=== PATIENT | male | born 2000 | race Caucasian/White ===

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

== ENCOUNTER 2020-08-15 21:08 | Emergency (ER) | payer SELFPAY ==
--- NOTE | 2020-08-15 21:15 | DI.RAD_ITS ---
Exam(s) XR SHOULDER LT COMPLETE 2+V EXAM: XR SHOULDER LT COMPLETE 2+V CLINICAL HISTORY: pain s/p fall. TECHNIQUE: 2D digital imaging was performed. COMPARISON: No exams were available for comparison FINDINGS: There is a large well-defined slightly lobulated osteophytic fragment measuring 4.4 by 1.5 cm along t he medial aspect of the neck and proximal diaphysis of the humerus, having the appearance of a nonacu te avulsion fracture but cannot exclude other pathology. Clinical correlation with patient's prior h istory and imaging is recommended. If this is not previously known finding then further evaluation w ith MRI is recommended rule out underlying pathologic bone lesion. No dislocation glenohumeral joint subacromial space appears unremarkable with no calcifications there in. AC joint unremarkable. Clavicle unremarkable. IMPRESSION: Large ossified density as described above. If this is not a previously documented finding than evalu ation with MRI is recommended to rule out underlying pathologic lesion. DATA REPOSITORY: RADIATION DOSE DELIVERED:
--- NOTE | 2020-08-15 21:16 | ED.GENADUL_ITS ---
Discharge Plan Disposition Patient Disposition: HOME Condition: Stable Discharge Details Chief Complaint: Orthopedic Clinical Impression: Sprain of left shoulder Primary Care Provider: Andres Cordova ED Provider: Venu Olsen Discharge Instructions Instructions: Shoulder Sprain (ED) Stand Alone Forms: Work Release Medical Decision Making 19 yo male who denies chronic medical problems comes in with cc of left shoulder pain. He was playing softball and went to slide into home base and to avoid a tag he had to roll onto his left shoulder which caused pain. Denies loc or other injuries. No head pain, neck pain, chest pain, abdomen pain. He only has pain in the left anterior shoulder. He has no noticeable deformity or assymetry to the other shoulder. No erythema or warmth. No pain in the humerus, elbow, forearm, wrist or hand with full range of motion of the elbow hand and shoulder, normal sensation and pulses. He is able to abduct his shoulder to about 90 degrees then limited due to pain but I am able to passively fully range the arm. Suspect strain vs sprain, less likely rotator cuff injury, will xray to evaluate for fracture or dislocation which I feel is unlikely based on exam xray shows what radiology wrote as possible left humeral metaphysis old avulsive injury and if not known previous finding and can consider non emergent MRI. I did discuss CT to further evaluate now and he would like to proceed with this at this time. ct shows old injury no acute findings and he does remember when he was younger injuring the shoulder. Will place in sling and discharge home, advised to follow up with pcp if pain continues in a week Differential Diagnosis Differential Diagnosis: sprain, strain, fracture Imaging Data Radiologic Study: Attestation: I personally reviewed and interpreted this imaging study as follows: Imaging: X-Ray Radiologist's impression: 1. Large, slightly lobulated well corticated curvilinear 4.4 cm ossific fragment along the medial margin of the proximal left humeral metaphysis with apparent sclerotic appearing donor site along the medial aspect of the proximal left humeral metaphysis concerning for sequela of old avulsive injury, however clinical correlation with history and prior imaging is recommended. If this is not a previously known finding, further evaluation with nonemergent contrast enhanced MRI is recommended to exclude underlying patholo gic lesion. 2. Otherwise no acute fracture or dislocation. Radiologic Study #2: Attestation: I personally reviewed and interpreted this imaging study as follows: Imaging: CT Scan Radiologist's impression: IMPRESSION: 1. Mildly irregular, mildly lobu lated 3.6 cm well-corticated ossific fragment along the medial margin of the proximal humeral metaphysis with apparent adjacent well corticated donor site from the medial aspect of the proximal humeral metaphysis. This is suspected to represent sequela of old osseous avulsive injury, possibly related to the subscapularis insertion, recommend clinical correlation. 2. Otherwise no acute fracture or dislocation. No convincing evidence of posterior dislocation event. HPI General Mode of arrival: ambulatory . Date/Time Provider Initiated Documentation: 08/15/20 21:16 . Limitations to Documentation: no limitations . Information obtained by: patient . History of Present Illness 19 year old M presents to the emergency department with the chief complaint of left shoulder pain, described as moderate, Quality is described as aching, and is localized to the left and upper extremity. Patient reports no radiation. Rest improves symptom(s), Movement worsens symptoms . Patient notes no other symptoms.. Patient did receive the following treatments prior to arrival, none Related Data Allergies Allergy/AdvReac Type Severity Reaction Status Date / Time No Known Allergies Allergy Unverified 08/15/20 21:20 General OSMEL: 4 Review of Systems All systems reviewed & are unremarkable except as noted in HPI and below Constitutional Constitutional: Denies chills, Denies fever(s) and Denies weakness ENT Ears, Nose, Mouth, and Throat: Denies change in voice Cardiovascular Cardiovascular: Denies chest pain and Denies dyspnea Respiratory Respiratory: Denies cough and Denies dyspnea Gastrointestinal Gastrointestinal: Denies abdominal pain, Denies nausea and Denies vomiting Musculoskeletal Musculoskeletal: Denies joint swelling Neurologic Neurologic: Denies weakness [facility] Medical History (Updated 08/15/20 @ 22:46 by Venu Olsen MD) Learning difficulty Nocturnal enuresis Pes planus Family History Mother Healthy adult on routine physical examination Father Healthy adult on routine physical examination Social History Smoking/Tobacco Use Status: Current every day Tobacco Type: cigarettes Smoking risk assessment performed?: Yes Alcohol Intake: never Drug use: Never Substance use type: does not use Do you feel safe at home: Yes Do you feel safe in your relationship?: Yes Exam Const General: no acute distress Orientation: alert [facility] Head: normal to inspection Ears: external ears normal General nose exam: external nose normal Mouth: moist mucous membranes Eyes General: appearance normal, both eyes and all related structures Neck Neck: normal visual inspection Resp Effort & Inspection: normal respiratory effort and able to speak in complete sentences Cardio Rate: regular rate Skin General skin exam: no rashes or lesions noted Neuro General: patient alert and patient oriented x3 Extrem General: normal to inspection and capillary refill normal Psych Mental Status: mental status grossly normal
[2020-08-15 21:17] VITALS: BP 134/67; PULSE 81; RESP 18; TEMP 36.6; O2SAT 99
[2020-08-15] MEDS: Ibuprofen 600 MG TAB PO (21:26)
--- NOTE | 2020-08-15 22:00 | DI.CT_ITS ---
Exam(s) CT UPPER EXTREMITY LT WO EXAM: CT UPPER EXTREMITY LT WO CLINICAL HISTORY: ?posterior shoulder dislocation TECHNIQUE: Imaging Protocol: Axial computed tomography images with coronal and sagittal reformatted images were created and reviewed. CONTRAST MATERIAL: None COMPARISON: Plain films same day reviewed FINDINGS: There is a 3.6 cm by 1.4 cm relatively well-defined osteophytic density semi lunar shaped slightly lo bulated off of the medial aspect of the humeral head neck neck region with a corresponding a defect i n the adjacent bone. Location and configuration most probably reflects prior significant injury of t he inferior glenohumeral [id number] injury. There is no bony Bankart lesion.. Coracoid proc ess is intact. AC joint and acromion are intact. No os acromiale. No abnormal soft tissue calcific ations. There does not appear to be a destructive lesion here. IMPRESSION: Findings as above. Probably related to prior significant trauma related to the inferior glenohumeral ligament/ HAGL-type injury. Correlation with past history recommended. RADIATION DOSE DELIVERED: 373.49mGy.cm Total DLP DATA REPOSITORY: All CT scans at this facility are submitted to the National Radiology Data Registry (NRDR) Dose Index Registry (DIR) with the [employer] (A[employer]). RADIATION OPTIMIZATION: All CT scans at this facility use at least one of these dose optimization te chniques: automated exposure control; mA and/or kV adjustment per patient size (includes targeted exa ms where dose is matched to clinical indication); or iterative reconstruction.
--- NOTE | 2020-08-15 22:21 | DI.VRAD_ITS ---
PROCEDURE INFORMATION: Exam: XR Left Shoulder Exam date and time: 08/15/2020 9:17 PM Age: 19 years old Clinical indication: Injury or trauma; Other: Pain, S/P fall; Crushing; Shoulder; Left; Injury details: Pain S/P fall TECHNIQUE: Imaging protocol: XR Left shoulder. Views: 2 or more views. COMPARISON: CR LEFT ELBOW COMPLETE 09/05/2013 12:25 PM FINDINGS: Bones/joints: There is large, slightly lobulated well corticated curvilinear ossific fragment measuring up to 4.4 cm in length along the medial aspect of the proximal left humeral metaphysis with apparent, sclerotic appearing donor site from the medial aspect of the proximal left humeral metaphysis which appears chronic. Otherwise no acute fracture or dislocation. Acromioclavicular and coracoclavicular intervals are preserved. Soft tissues: No focal abnormality. IMPRESSION: 1. Large, slightly lobulated well corticated curvilinear 4.4 cm ossific fragment along the medial margin of the proximal left humeral metaphysis with apparent sclerotic appearing donor site along the medial aspect of the proximal left humeral metaphysis concerning for sequela of old avulsive injury, however clinical correlation with history and prior imaging is recommended. If this is not a previously known finding, further evaluation with nonemergent contrast enhanced MRI is recommended to exclude underlying pathologic lesion. 2. Otherwise no acute fracture or dislocation. Dictated and Authenticated by: Carlos Manuel Boateng MD. Ordering:ELIEZER Lea MD
--- NOTE | 2020-08-15 22:42 | DI.VRAD_ITS ---
PROCEDURE INFORMATION: Exam: CT Left Upper Extremity Without Contrast, Shoulder Exam date and time: 08/15/2020 10:12 PM Age: 19 years old Clinical indication: Injury or trauma; Crushing; Arm, upper; Left; Injury details: Fall ? posterior shoulder dislocation TECHNIQUE: Imaging protocol: CT of the Left upper extremity without contrast was performed. Exam focused on the shoulder. COMPARISON: CR XR SHOULDER LT COMPLETE 2+V 08/15/2020 9:42 PM FINDINGS: Bones/joints: There is mildly irregular, mildly lobulated ossific fragment along the medial margin of the proximal humeral metaphysis which measures approximately 3.6 cm in length on this exam. This fragment is well corticated with apparent adjacent well corticated donor site from the medial aspect of the proximal humeral metaphysis possibly corresponding to the subscapularis insertion. Otherwise no acute fracture or dislocation. No convincing evidence of posterior dislocation, no reverse Hill-Sachs or reverse osseous Bankart lesion. No significant joint effusion. Acromioclavicular and coracoclavicular intervals are preserved. Soft tissues: No significant focal soft tissue edema. No soft tissue fluid collection.. IMPRESSION: 1. Mildly irregular, mildly lobulated 3.6 cm well-corticated ossific fragment along the medial margin of the proximal humeral metaphysis with apparent adjacent well corticated donor site from the medial aspect of the proximal humeral metaphysis. This is suspected to represent sequela of old osseous avulsive injury, possibly related to the subscapularis insertion, recommend clinical correlation. 2. Otherwise no acute fracture or dislocation. No convincing evidence of posterior dislocation event. Dictated and Authenticated by: Carlos Manuel Boateng MD. Ordering:ELIEZER Lea MD
== END 2020-08-15 22:55 | disposition home or self-care (01) ==
LOC: ER 08-16 02:57
PROVIDERS: Emergency Provider Emergency Medicine; PCP Pediatrics
DX: S43.492A Other sprain of left shoulder joint, initial encounter (principal); W21.89XA Striking against or struck by other sports equipment, initial encounter; Y93.64 Activity, baseball
CPT/HCPCS: 99284; 73030; 73200

== ENCOUNTER 2022-02-27 08:42 | Emergency (ER) | payer SELFPAY ==
--- NOTE | 2022-02-27 08:45 | RT.EKG_ITS ---
APPROVED REPORT Exam: Resting ECG Reason for Exam: CHEST PAIN Patient Location: E HR:89 bpm ECG Measurements Heart Rate 89 AXIS NV 137 P 74 QRSd 78 QRS 70 QT 325 T 49 QTc 395 Conclusion Sinus rhythm...normal P axis, V-rate 60- 99 Probable left atrial enlargement...P >50mS, <-0.10mV V1 PHysician: no stemi
[2022-02-27 08:51] VITALS: BP 131/68; PULSE 89; RESP 23; TEMP 37.6; O2SAT 98
[2022-02-27 08:53] VITALS: RESP 16
[2022-02-27] MEDS: Normal Saline 1,000 ML 1000 ML IV (09:00)
[2022-02-27] MEDS: Ondansetron 4 MG/2 ML VIAL IVP (09:07)
[2022-02-27] MEDS: Acetaminophen 500 MG TAB 1000 MG PO (09:07)
[2022-02-27] MEDS: Ketorolac 15 MG/ML VIAL IVP (09:08)
--- NOTE | 2022-02-27 09:14 | W.ED.GENAD ---
Discharge Plan Disposition Patient Disposition: Home Condition: Good Discharge Details Clinical Impression: Influenza A Primary Care Provider: Jillian Fernandez ED Provider: Les Altamirano Home Meds and New Rx's Prescriptions: No Action No Known Home Meds Discharge Instructions Instructions: Influenza (ED) Additional Instructions: At this time you have influenza. Please stay well-hydrated, get plenty of rest, and take Tylenol Motrin as needed. Your symptoms will likely improve over the next few days. If you notice any worsening of your symptoms, or any new symptoms such as vomiting, diarrhea, fever, chills, shortness of breath, chest pain, numbness, weakness, or fainting , please return immediately to the emergency department for reevaluation. Please follow up with your primary care provider as soon as possible for reassessment and reevaluation. As always, it was a pleasure participating in your medical care today. Stand Alone Forms: Work Release Referrals: Jillian Fernandez MD [Primary Care Provider] - Medical Decision Making 21-year-old male with no significant past medical history who presents today for evaluation of runny nose, congestion, sore throat, nausea, vomiting, diarrhea, chills, fatigue, achiness. Patient states that the symptoms been present for the last for 5 days. He developed burning in the epigastrium and vomiting and diarrhea over the last 2 to 3 days. He denies any hemoptysis, hematochezia or melena. He denies any hematemesis. He has not received his flu or COVID-vaccine. He has not had COVID. He denies any other complaints at this time. No other modifying factors. Physical exam demonstrates well-appearing male, no signs of significant abnormality. No meningeal signs, lungs are clear, vital signs stable aside from mild tachycardia. Mucous membranes notably dry. Suspect viral etiology like COVID or flu. Will evaluate for these. We will rehydrate, monitor closely and reassess. EKG shows no evidence of STEMI. Bedside echo shows no abnormalities. 10:14 AM Laboratory work-up is returned normal, patient has been rehydrated, vital stable, influenza A is positive. Chest x-ray shows no evidence of pneumonia, patient stable for discharge home. Patient has been rehydrated with a liter of normal saline. He is tolerating p.o. well. Recommend continued fluids at home, Tylenol, Motrin, rest. Will give Zofran for home use. Recommend bland diet. Discussed red flags for which to return. Discussed risks and benefits of antivirals at this time, and through shared decision-making process patient has elected to hold off on antivirals. I have extensively reviewed the treatment plan and discharge instructions with the patient. I have addressed all patient concerns at this time. The patient was made aware of what symptoms to monitor for that would warrant a return to the emergency department. Discussed the plan with the patient, they demonstrate verbal understanding and agreement with our assessment and plan at this time. The documentation in this chart was dictated using [employer] dictation software. Please excuse any dictation errors. FINDINGS: LUNGS: Clear. No pleural abnormality seen. HEART: Normal size. AORTA: Normal diameter. BONES: Unremarkable for age. Soft tissues: Unremarkable. IMPRESSION: No acute findings. Sign Out No HPI General Date/Time Provider Initiated Documentation: 02/27/22 08:48. HPI Narrative: 21-year-old male with no significant past medical history who presents today for evaluation of runny nose, congestion, sore throat, nausea, vomiting, diarrhea, chills, fatigue, achiness. Patient states that the symptoms been present for the last for 5 days. He developed burning in the epigastrium and vomiting and diarrhea over the last 2 to 3 days. He denies any hemoptysis, hematochezia or melena. He denies any hematemesis. He has not received his flu or COVID-vaccine. He has not had COVID. He denies any other complaints at this time. No other modifying factors. Related Data Home Medications Medication Instructions Recorded Confirmed Unknown [No Known Home Meds] 02/27/22 02/27/22 Allergies Allergy/AdvReac Type Severity Reaction Status Date / Time No Known Allergies Allergy Unverified 02/27/22 08:55 General Stated Complaint: Chest Pain OSMEL: 2 Review of Systems All systems reviewed & are unremarkable except as noted in HPI and below PFSH All Active Problems (Updated 02/27/22 @ 10:19 by Les Altamirano DO) Sprain of left shoulder (Acute) Influenza A (Acute) Medical History (Updated 02/27/22 @ 10:19 by Les Altamirano DO) Learning difficulty Nocturnal enuresis Pes planus Family History Mother Healthy adult on routine physical examination Father Healthy adult on routine physical examination Social History Smoking/Tobacco Use Status: Current every day Tobacco Type: cigarettes Smoking risk assessment performed?: Yes Alcohol Intake: never Drug use: Never Substance use type: does not use Do you feel safe at home: Yes Do you feel safe in your relationship?: Yes Exam Narrative Exam Narrative: 1.Const: Well-nourished, Well-developed, appearing stated age 2.Eyes: PERRL, no conjunctival injection, and symmetrical lids. 3.ENT: Atraumatic external nose and ears. dry MM. Neck: Symmetric, trachea midline, No thyromegaly. Patient demonstrates good movement of cervical neck. There is no nuchal rigidity, no nuchal tenderness. Patient is able to flex the neck without any difficulty or significant pain. Negative Kernig's and Brudzinski sign. 4.CVS: +S1/S2, No murmurs or gallops. Peripheral pulses 2+ and equal in all extremities. Brisk capillary refill in all extremities. 5.RESP: Unlabored respiratory effort. Clear to auscultation bilaterally. No wheezes rales or rhonchi 6.GI: Soft, Nontender/Nondistended, No hepatosplenomegaly. No guarding or rebound. 7.MSK: Normocephalic/Atraumatic, Extremities w/o deformity or ttp No cyanosis or clubbing, Normal movement of all extremities 8.Skin: Warm, Dry. No rashes or lesions. 9.Neuro: director audience marketing II-XII grossly intact. Sensation grossly intact, no focal neurologic deficits. 10.Psych: (AAO) x3. Appropriate mood and affect Course Vital Signs Vital signs: Vital Signs Temperature 37.6 C H 02/27/22 08:51 Pulse 89 02/27/22 08:51 Respiratory Rate 23 02/27/22 08:51 Blood Pressure 131/68 02/27/22 08:51 Pulse Oximetry 98 02/27/22 08:51 Temperature 37.6 C H 02/27/22 08:51 Temperature Source Temporal Artery Scan 02/27/22 08:51 Pulse 89 02/27/22 08:51 Respiratory Rate 16 02/27/22 08:53 Respiratory Effort Short of Breath 02/27/22 08:53 Respiratory Depth Normal 02/27/22 08:53 Respiratory Pattern Normal 02/27/22 08:53 Blood Pressure 131/68 02/27/22 08:51 Blood Pressure Position Sitting 02/27/22 08:51 Pulse Oximetry 98 02/27/22 08:51 Oxygen Delivery Method Room Air 02/27/22 08:51 Oxygen Flow Rate 0 02/27/22 08:51 Pain Level 7 02/27/22 09:08 POCUS Exam (ED) Limited Cardiac Exam DATE OF EXAM: 02/27/22 TIME OF EXAM: 09:16 PROVIDER THAT PERFORMED THE STUDY: Les Altamirano IS THIS A REPEAT EXAM DURING THIS ENCOUNTER: no REASON FOR EXAM: Chest pain VISUALIZED STRUCTURES: Left atrium, Left ventricle, Right ventricle and Interventricular septum VIEW OBTAINED: Parasternal long-axis PERTINENT FINDINGS/IMPRESSION: No apparent abnormalities Exam complete
[2022-02-27 09:17] LABS: Abs Immature Grans 0.01 10^3/uL (0.0-0.06); Absolute Basophil Count 0.02 10^3/uL (0.0-0.2); Absolute Eosinophil Count 0.12 10^3/uL (0.0-0.7); Absolute Lymphocyte Count 0.51 10^3/uL (1.2-3.4); Absolute Monocyte Count 0.84 10^3/uL (0.1-0.8); Absolute Neutrophil Count 3.18 10^3/uL (1.2-6.7); Basophils % 0.4; Eosinophils % 2.6; HCT 46.1 % (40.0-50.0); HGB 15.9 g/dL (13.5-17.5); Immature Grans % 0.2; Lymphocytes % 10.9; MCH 30.4 pg (27.0-33.0); MCHC 34.5 % (32.0-36.0); MCV 88 fL (80-95); MPV 11.5 fL (8.0-11.0); Monocytes % 17.9; Platelet Count 113 10^3/uL (130-400); RBC 5.23 10^6/uL (4.36-5.78); RDW 12.6 % (11.8-14.1); RDW-SD 41.1 fL; WBC 4.68 10^3/uL (4.4-10.8)
[2022-02-27 09:29] LABS: ALT 27 U/L (16-63); AST 24 U/L (15-37); Albumin 3.8 g/dL (3.4-5.0); Alkaline Phosphatase 84 U/L (46-116); BUN 11 mg/dL (7-18); Bilirubin, Total 0.3 mg/dL (0.2-1.0); CREATININE 1.2 mg/dL (0.70-1.30); Calcium 8.5 mg/dL (8.5-10.1); Chloride 99 mmol/L (98-107); Estimated GFR 87.69 (mL/min/1.73m2); Glucose 124 mg/dL (74-106); Lipase 56 U/L (73-393); Potassium 3.8 mmol/L (3.5-5.1); Sodium 137 mmol/L (136-145); Total Protein 7.4 g/dL (6.4-8.2)
--- NOTE | 2022-02-27 09:40 | DI.RAD_ITS ---
Exam(s) XR PORTABLE CHEST AP EXAM: XR PORTABLE CHEST AP CLINICAL HISTORY: cough, eval for pneumonia TECHNIQUE: 2D digital imaging was performed. COMPARISON: No exams were available for comparison FINDINGS: LUNGS: Clear. No pleural abnormality seen. HEART: Normal size. AORTA: Normal diameter. BONES: Unremarkable for age. Soft tissues: Unremarkable. IMPRESSION: No acute findings. DATA REPOSITORY: RADIATION DOSE DELIVERED:
[2022-02-27 10:03] LABS: COVID-19 PCR Negative (Negative); Influenza A PCR Positive (Negative); Influenza B PCR Negative (Negative); RSV PCR Negative (Negative)
[2022-02-27 10:06] LABS: Source Nasopharynx
== END 2022-02-27 10:35 | disposition home or self-care (01) ==
PROVIDERS: Emergency Provider Student in an Organized Health Care Education/Training Program; PCP Student in an Organized Health Care Education/Training Program
DX: J10.1 Influenza due to other identified influenza virus with other respiratory manifestations (principal); Z20.822 Contact with and (suspected) exposure to COVID-19
CPT/HCPCS: 36415; 80053; 83690; 87637; 93005; 93308; 96361; 96374; 96375; 99284; 71045; 85025; 93010; 99285; J1885; J2405

== ENCOUNTER 2022-08-07 10:51 | Emergency (ER) | payer OTHER, SELFPAY ==
--- NOTE | 2022-08-07 10:45 | DI.RAD_ITS ---
Exam(s) XR ANKLE RT COMPLETE XR FOOT RT COMPLETE EXAM: XR ANKLE RT COMPLETE CLINICAL HISTORY: r ankle pain. TECHNIQUE: 2D digital imaging was performed. Three views. COMPARISON: CR XR FOOT RT COMPLETE from 08/07/2022 FINDINGS: BONES: No acute fracture is present. No bony destructive lesion is seen. JOINTS: The ankle mortise is normally aligned. No dislocation. SOFT TISSUE: Normal. IMPRESSION: Unremarkable radiographs of the right ankle and right foot. DATA REPOSITORY: RADIATION DOSE DELIVERED:
--- NOTE | 2022-08-07 10:53 | ED.GENADUL_ITS ---
Discharge Plan Disposition Patient Disposition: Home Discharge Details Clinical Impression: Moderate right ankle sprain Primary Care Provider: Unknown,Unknown ED Provider: Ludwin King Home Meds and New Rx's Prescriptions: No Action No Known Home Meds Discharge Instructions Instructions: Ankle Sprain (ED) Additional Instructions: You were seen in the emergency department for your ankle pain. Your x-ray showed no sign of any fractures. You most likely have a sprain. If your symptoms do not improve with this lace up ankle brace please return to the emergency department for reassessment. You may bear weight on your right lower extremity. For the remainder of today please elevate and rest your right ankle. Please use ice for 20 minutes on 20 minutes off for the remainder of the day. For your pain please take medications as follows: 1. Take acetaminophen (Tylenol), 1,000 mg (two 500 mg tabs) every 6 hours 2. Take ibuprofen (Advil), 400 mg every 6 hours. Discharge Data Discharge Date/Time-TO BE ENTERED AT DEPARTURE: 08/07/22 12:45 Medical Decision Making This is an overall quite well-appearing normothermic and not tachycardic 21-year-old male with pain in his right ankle and knee but no obvious deformities concerning for osseous abnormality versus ligamentous injury. Will obtain plain films. No history of axial loading nor talar tenderness to suggest talar fracture. No midfoot instability to suggest Lisfranc injury. No lateral foot tenderness to suggest Roy fracture. No history of knee twisting patient and is not morbidly obese so doubt knee dislocation. As result I do not feel that the patient requires any angiogram of his right lower extremity. His foot is warm well perfused and there is no obvious signs of any acute dislocations. If plain films are negative will provide with a lace up brace and make patient weightbearing as tolerated. No history of head strike to suggest benefit from CT head. No shortness of breath or hypoxia so doubt pneumothorax so we will defer chest x-ray at this point time. No neck tenderness to suggest benefit fr om CT cervical spine. 12:35 PM Radiographs read as negative for any acute osseous abnormalities. I discussed resting and icing with the patient. We will provide him with a lace up ankle brace and make him weightbearing as tolerated. I have advised him to return to the ED for any worsening pain or any significant color changes in his foot. He will take oral analgesia as needed using acetaminophen and ibuprofen. HPI General Date/Time Provider Initiated Documentation: 08/07/22 10:53 . HPI Narrative: This is a previously healthy 21-year-old male arriving to the emergency department following an injury he sustained at work to his right ankle and knee. He reports that he was stepping off of a trailer and he got his right ankle caught under a rail. This caused him to fall off of the trailer. He says that he has had worsening pain since his injury which occurred 30 to 45 minutes ago. He did not hit his head. He did not lose consciousness. He does not feel short of breath. Related Data Home Medications Medication Instructions Recorded Confirmed Unknown [No Known Home Meds] 02/27/22 08/07/22 Allergies Allergy/AdvReac Type Severity Reaction Status Date / Time No Known Allergies Allergy Unverified 08/07/22 10:58 General OSMEL: 2 PFSH All Active Problems (Updated 08/07/22 @ 12:35 by Ludwin King MD) Sprain of left shoulder (Acute) Moderate right ankle sprain (Acute) Medical History (Updated 08/07/22 @ 12:35 by Ludwin King MD) Learning difficulty Nocturnal enuresis Pes planus Family History Mother Healthy adult on routine physical examination Father Healthy adult on routine physical examination Social History Smoking/Tobacco Use Status: Former Tobacco Use Smoking risk assessment performed?: Yes Alcohol Intake: never Drug use: Never Substance use type: does not use Do you feel safe at home: Yes Do you feel safe in your relationship?: Yes Exam Narrative Exam Narrative: General: Well-appearing in no acute distress speaking in complete sentences. Head: Normocephalic, atraumatic. Eye: Pupils equal, round reactive to light. Extraocular eye movements intact. No conjunctival injection. No scleral icterus. Ear, nose, mouth, throat: Grossly normal inspection. Normal voice, handling secretions normally. Neck: Trachea midline. Cardiovascular: Well-perfused distal extremities. Respiratory: Nonlabored respiration. Gastrointestinal: Nondistended abdomen. Musculoskeletal: Right lower extremity with no obvious deformities. Patient does have some right medial knee tenderness at the joint line. He is able to fully flex and extend his right knee. No tibial tenderness. No calf tenderness. No Achilles tenderness. Patient does have some right lateral malleoli or tenderness. He has no calcaneal tenderness. He has no midfoot instability. He has no right lateral foot tenderness. Right foot warm and well-perfused. He is 4 out of 5 strength in dorsi and plantarflexion at the right foot. Cap refill less than 2 seconds in the right toes. Skin: Normal for age and race, grossly normal temperature and turgor. No acute rash. Neurologic: Alert and appropriate, no apparent acute deficits. Psychiatric: Mood and manner are appropriate. Grooming and personal hygiene are appropriate.
[2022-08-07 10:55] VITALS: BP 115/66; PULSE 66; RESP 15; TEMP 36.4; O2SAT 99
--- NOTE | 2022-08-07 11:15 | DI.RAD_ITS ---
Exam(s) XR KNEE RT 3V AP,LAT,JOSE D EXAM: XR KNEE RT 3V AP,LAT,JOSE D CLINICAL HISTORY: knee pain. TECHNIQUE: 2D digital imaging was performed. Three views. COMPARISON: CR LEFT KNEE LIMITED 1 OR 2 VIEWS from 12/06/2015 CR RIGHT KNEE 3 VIEWS from 12/06/2015 FINDINGS: BONES: No acute fracture is present. No bony destructive lesion is seen. There is a tiny exostosis at the medial femoral metaphysis. It is unchanged from the prior exam. JOINTS: The knee is normally aligned. No joint effusion is seen. SOFT TISSUE: Normal. IMPRESSION: Unremarkable radiographs of the right knee. DATA REPOSITORY: RADIATION DOSE DELIVERED:
[2022-08-07] MEDS: Ibuprofen 600 MG TAB PO (11:54)
[2022-08-07] MEDS: Acetaminophen 500 MG TAB 1000 MG PO (11:54)
== END 2022-08-07 12:45 | disposition home or self-care (01) ==
PROVIDERS: Emergency Provider Emergency Medicine
DX: W17.89XA Other fall from one level to another, initial encounter; S93.401A Sprain of unspecified ligament of right ankle, initial encounter; M25.561 Pain in right knee
CPT/HCPCS: 29515; 73562; 99284; 73610; 73630

== ENCOUNTER 2025-01-04 04:14 | Emergency (ER) | payer BC, SELFPAY ==
[2025-01-04 04:17] VITALS: BP 135/62; PULSE 70; RESP 18; TEMP 36.9; O2SAT 97
--- NOTE | 2025-01-04 04:48 | W.ED.GENAD ---
Discharge Plan Disposition Patient Disposition: Home Condition: Good Discharge Details Clinical Impression: Hematemesis Primary Care Provider: Unknown,Unknown ED Provider: Domi Martin Home Meds and New Rx's Prescriptions: New omeprazole 20 mg capsule,delayed release(DR/EC) 20 mg PO DAILY Qty: 30 0RF Continued ondansetron 4 mg tablet,disintegrating 4 mg PO Q6H PRN Discharge Instructions Instructions: GI bleed Additional Instructions: Start taking omeprazole once a day. Call your primary care doctor in the morning to schedule an appointment to be seen within the next 72 hours to followup on your visit today. Return to the emergency department for new or worsening symptoms including if you continue to vomit blood or what looks like coffe grounds, develop abdominal pain especially upper abdominal pain, feel lightheaded or like you are going to pass out, or if you have any other concerns. HPI General Mode of arrival: ambulatory. Date/Time Provider Initiated Documentation: 01/04/25 04:20. Limitations to Documentation: no limitations. Information obtained by: patient. HPI Narrative: 24yo previously healthy male presenting with episode of hemetemesis. Has had N/V persistently on and off for the past 4 weeks, seen in UC and taking zofran with improvement. This evening began dry heaving aggressively but did not vomit (last vomited ~5 days ago). Subsequently about one hour prior to arrival 'spit up' a mouthful of blood; felt it coming up like vomit/reflux but did not projectile vomit like he usually does. Spit out dark red blood. Has never had anything like this happen before. No epigastric pain or abdominal pain. Was tolerating PO today. No dark/bloody stool. Otherwise in his usual state of health with no fevers, chills, rash, lightheadedness, syncope, chest pain, shortness of breath, back pain, or other concerns. Related Data Home Medications ?Medication ?Instructions ?Recorded ?Confirmed omeprazole 20 mg capsule,delayed 20 mg PO DAILY #30 caps 01/04/25 release ondansetron 4 mg disintegrating 4 mg PO Q6H PRN 01/04/25 01/04/25 tablet Previous Rx's ?Medication ?Instructions ?Recorded omeprazole 20 mg capsule,delayed 20 mg PO DAILY #30 caps 01/04/25 release Allergies Allergy/AdvReac Type Severity Reaction Status Date / Time No Known Allergies Allergy Unverified 01/04/25 04:22 General Stated Complaint: Nausea/Vomit/Diar OSMEL: 3 Review of Systems Narrative: see HPI Exam Narrative Exam Narrative: General: Alert, well appearing, well nourished, in no acute distress. Head: Normocephalic, atraumatic Neck: Trachea midline, ?Neck supple. ENT: ?MMM.? No oropharygeal lesions or exudate. Cardiac: ?RRR, no murmurs appreciated Resp: No respiratory distress. CTAB. Abd: ?Soft, non-distended, nontender Extremities: ?No deformities.? No peripheral edema. Neurologic: GCS 15. ? Moves all extremities freely against gravity Course Vital Signs Vital signs: Vital Signs Temperature 36.9 C 01/04/25 04:17 Pulse 70 01/04/25 04:17 Respiratory Rate 18 01/04/25 04:17 Blood Pressure 135/62 01/04/25 04:17 Pulse Oximetry 97 01/04/25 04:17 Temperature 36.9 C 01/04/25 04:17 Pulse 70 01/04/25 04:17 Respiratory Rate 18 01/04/25 04:17 Blood Pressure 135/62 01/04/25 04:17 Pulse Oximetry 97 01/04/25 04:17 Pain Level 0 01/04/25 04:17 Medical Decision Making 24yo previously healthy male presenting with episode of hemetemesis. Has had N/V persistently on and off for the past 4 weeks, seen in UC and taking zofran with improvement; this evening began dry heaving aggressively but did not vomit however subsequently about one hour prior to arrival he 'spit up' a mouthful of blood; felt it coming up like vomit/reflux. No hemoptysis. No abdominal or epigastric pain. No history of liver disease/cirrhosis/varices. Vital signs reassuring on arrival. Well appearing on exam with no abdominal tenderness. Not suggestive of perforated ulcer, esophageal varices, boerhaave, epistaxis. May be bleeding ulcer, gastritits/esophagitis, katya-alatorre tear. Will give zofran and protonix while awaiting results of workup. -Labs reviewed as below, CBC reassuring with no leukocytosis or anemia, CMP with normal BUN and no actionable abnormalities, coags normal. -On reassessment he has had no further vomiting. Glasgo-Blatchford score 0. PO challenged and tolerated well. With reassuring labs and GB score, appropriate for outpoint followup, PCP to start though may need endoscopy if symptoms persist. Will discharge with prescription for omeprazole. Discharged home; discharge instructions and return precuations were reviewed with patient who verbalized understanding. All questions were answered and he is in full agreement with the plan. Lab Data Lab results reviewed: Yes I reviewed the patient's lab results. Labs: Laboratory Tests Range/Units 01/04/25 05:20 WBC (4.4-10.8) 10^3/uL 6.18 RBC (4.36-5.78) 10^6/uL 5.08 Hgb (13.5-17.5) g/dL 15.4 Hct (40.0-50.0) % 43.6 MCV (80-95) fL 86 MCH (27.0-33.0) pg 30.3 MCHC (32.0-36.0) % 35.3 RDW (11.8-14.1) % 12.1 Plt Count (130-400) 10^3/uL 167 MPV (8.0-11.0) fL 11.8 H Immature Gran % % 0.3 Neutrophils % % 68.3 Lymphocytes % % 18.9 Monocytes % % 9.5 Eosinophils % % 2.4 Basophils % % 0.6 Nucleated RBC % (0.0-0.3) % 0.0 Absolute Neutrophils (1.2-6.7) 10^3/uL 4.21 Absolute Lymphocytes (1.2-3.4) 10^3/uL 1.17 L Absolute Monocytes (0.1-0.8) 10^3/uL 0.59 Absolute Eosinophils (0.0-0.7) 10^3/uL 0.15 Absolute Basophils (0.0-0.2) 10^3/uL 0.04 PT (9.1-11.1) sec 10.2 INR (0.9-1.1) 1.0 APTT (20.6-30.2) sec 30.1 Sodium (136-145) mmol/L 141 Potassium (3.5-5.1) mmol/L 4.2 Chloride (98-107) mmol/L 103 Carbon Dioxide (21.0-32.0) mmol/L 28.5 Anion Gap (3-11) mmol/L 9.5 BUN (7-18) mg/dL 16 Creatinine (0.70-1.30) mg/dL 1.0 Est GFR (CKD-EPI 2020) (mL/min/1.73m2) 107.12 Glucose (74-106) mg/dL 107 H Calcium (8.5-10.1) mg/dL 8.7 Total Bilirubin (0.2-1.0) mg/dL 0.5 AST (15-37) U/L 19 ALT (16-63) U/L 37 Alkaline Phosphatase (46-116) U/L 85 Total Protein (6.4-8.2) g/dL 7.5 Albumin (3.4-5.0) g/dL 4.1 PFSH All Active Problems (Updated 01/04/25 @ 07:02 by Domi Martin MD) Hematemesis (Acute) Sprain of left shoulder (Acute) Medical History (Updated 01/04/25 @ 07:02 by Domi Martin MD) Pes planus Learning difficulty Nocturnal enuresis Family History Mother Healthy adult on routine physical examination Father Healthy adult on routine physical examination Social History Smoking/Tobacco Use Status: Former Tobacco Use Smoking risk assessment performed?: Yes Alcohol Intake: never Drug use: Never Substance use type: does not use Do you feel safe at home: Yes Do you feel safe in your relationship?: Yes PAWSS Have you Been Recently Intoxicated or Drunk Within the Last 30 days?: No Have you Ever Experienced Previous Episodes of Alcohol Withdrawal?: No Have you ever Experienced Withdrawal Seizures?: No Have you ever Experienced Delirium Tremens(DT)s?: No Have you ever undergone Alcohol Rehabilitation Treatment (i.e, inpt ot outpatient treatment programs)?: No Have you ever Experienced Blackouts?: No Have you ever Combined Alcohol with other Downers within the last 90 days?: No Have you ever Combined Alcohol with any other Substance of Abuse during the last 90 days?: No Positive Blood Alcohol level on Presentation? [PCS.BAL]: No Evidence of Increased Autonomic Activity (i.e. HR>120, tremor, sweating, agitation, nausea)?: No Result: 0
[2025-01-04] MEDS: Pantoprazole 40 MG VIAL IVP (05:19)
[2025-01-04] MEDS: Ondansetron 4 MG/2 ML VIAL IVP (05:19)
[2025-01-04 05:29] LABS: Abs Immature Grans 0.02 10^3/uL (0.0-0.06); HCT 43.6 % (40.0-50.0); HGB 15.4 g/dL (13.5-17.5); Immature Grans % 0.3 %; MCH 30.3 pg (27.0-33.0); MCHC 35.3 % (32.0-36.0); MCV 86 fL (80-95); MPV 11.8 fL (8.0-11.0); Platelet Count 167 10^3/uL (130-400); RBC 5.08 10^6/uL (4.36-5.78); RDW 12.1 % (11.8-14.1); RDW-SD 38.1 fL; WBC 6.18 10^3/uL (4.4-10.8)
[2025-01-04 05:50] LABS: ALT 37 U/L (16-63); AST 19 U/L (15-37); Albumin 4.1 g/dL (3.4-5.0); Alkaline Phosphatase 85 U/L (46-116); Anion Gap 9.5 mmol/L (3-11); BUN 16 mg/dL (7-18); Bilirubin, Total 0.5 mg/dL (0.2-1.0); CO2 28.5 mmol/L (21.0-32.0); Calcium 8.7 mg/dL (8.5-10.1); Chloride 103 mmol/L (98-107); Estimated GFR 107.12 (mL/min/1.73m2); Glucose 107 mg/dL (74-106); Potassium 4.2 mmol/L (3.5-5.1); Sodium 141 mmol/L (136-145); Total Protein 7.5 g/dL (6.4-8.2)
[2025-01-04 05:57] LABS: INR 1.0 (0.9-1.1); PTT Activated 30.1 sec (20.6-30.2); Prothrombin Time 10.2 sec (9.1-11.1)
[2025-01-04 06:04] VITALS: BP 111/60; PULSE 52; RESP 18; O2SAT 99
[2025-01-04 06:25] VITALS: BP 124/69; PULSE 54; RESP 18; O2SAT 97
[2025-01-04 07:25] VITALS: BP 127/99; PULSE 57; O2SAT 99
== END 2025-01-04 07:35 | disposition home or self-care (01) ==
PROVIDERS: Emergency Provider Student in an Organized Health Care Education/Training Program
DX: K92.0 Hematemesis (principal); R11.0 Nausea
CPT/HCPCS: 80053; 96374; 96375; 99284; 85025; 85610; 85730; 99283; J2405; J2470